=== PATIENT | female | born 1965 | race African-American/Black ===

== ENCOUNTER 2023-01-09 15:13 | Emergency (ER) | payer MEDICARE, BC ==
[~2023-01-09] VITALS: Ht 175.3 cm; Wt 65.9 kg
[2023-01-09] MEDS ORDERED: CEPHALEXIN MONOHYDRATE 500 MG CAPSULE PO ONE (15:45)
[2023-01-09] MEDS ORDERED: PERTUSS(ACELL),DIPH,TET VAC/PF 0.5 ML SYRINGE IM. ONE (15:45)
[2023-01-09] MEDS ORDERED: DOXYCYCLINE HYCLATE 100 MG TABLET PO ONE (15:45)
[2023-01-09] MEDS ORDERED: AmLODIPine BESYLATE 5 MG TABLET PO ONE (15:45)
[2023-01-09] MEDS ORDERED: HYDROCODONE/ACETAMINOPHEN 5-325 MG TABLET PO ONE (15:45)
[2023-01-09] MEDS ORDERED: IBUPROFEN 600 MG TABLET PO ONE (15:45)
[2023-01-09] MEDS ORDERED: DOXY-354 PO ×2 (17:29→18:14)
[2023-01-09] MEDS ORDERED: IBUP-1554 PO ×2 (17:29→18:14)
[2023-01-09] MEDS ORDERED: CEPH-558 PO ×2 (17:29→18:14)
[2023-01-09 17:31] VITALS: BP 194/109
[2023-01-09] MEDS ORDERED: AMLO-257 PO (18:14)
[2023-01-09] MEDS ORDERED: HYDR-4723 PO (18:14)
== END 2023-01-09 18:24 | disposition home or self-care (01) ==
LOC: EMS 15:22
DX: S61.232A Puncture wound without foreign body of right middle finger without damage to nail, initial encounter (principal); L03.011 Cellulitis of right finger; I10 Essential (primary) hypertension; X58.XXXA Exposure to other specified factors, initial encounter; Y93.89 Activity, other specified; Y92.89 Other specified places as the place of occurrence of the external cause; Y99.8 Other external cause status
CPT/HCPCS: 90471; 90715; 99284